=== PATIENT | male | born 1945 | race Caucasian/White ===

== ENCOUNTER 2021-09-13 17:05 | Inpatient (IN) | payer MEDICARE ==
[2021-09-13 17:22] LABS: #Basophils 0.1 thou/uL (0.0-0.2); #Eosinphils 0.1 thou/uL (0.0-0.7); #Lymphocytes 1.5 thou/uL (1.20-3.40); #Monocytes 0.9 thou/uL (0.11-0.59); #Neutrophils 5.6 thou/uL (1.40-6.50); %Basophils 0.7 % (0.0-1.0); %Eosinophils 1.7 % (0.0-10.0); %Lymphocytes 18.3 % (21.0-51.0); %Monocytes 10.8 % (0.0-10.0); %Neutrophils 68.5 % (42.0-75.0); Hemoglobin 13.9 g/dL (14.0-18.0); Mean Corpuscular Hemoglobin 34.3 pg (27.0-31.0); Mean Platelet Volume 6.4 fL (7.4-10.4); Platelet Count 252 thou/uL (130-400); RBC Distribution Width 11.9 % (11.5-14.5); Red Blood Cell (RBC) Count 4.05 mill/uL (4.70-6.10); White Blood Cell (WBC) Count 8.2 thou/uL (4.8-10.8)
[2021-09-13 17:31] LABS: PTT 31.4 sec (22.9-36.1); Prothrombin Time 13.6 sec (12.0-14.7)
[2021-09-13 17:37] LABS: ALT (SGPT) 24 U/L (8-55); AST (SGOT) 55 U/L (5-34); Albumin 4.1 g/dL (3.4-4.8); Alkaline Phosphatase 64 U/L (40-110); Anion Gap 22 mmol/L (10-20); BUN (Urea Nitrogen) 10 mg/dL (8.4-25.7); CK (CPK) 1058 U/L (30-200); Calc. Creatinine Clearance 0 mL/min (70-130); Carbon Dioxide 21 mmol/L (23-31); Chloride 85 mmol/L (98-107); Globulin 2.7 g/dL (2.4-3.5); Glucose 94 mg/dL (83-110); Potassium 3.2 mmol/L (3.5-5.1); Protein, Total 6.8 g/dL (5.8-8.1); Sodium 125 mmol/L (136-145)
[2021-09-13] MEDS ORDERED: Potassium Chloride 20 MEQ TAB ONE (18:55)
[2021-09-13] MEDS ORDERED: Ondansetron PF 4 MG/2 ML Vial IVP PRN (19:25)
[2021-09-13] MEDS ORDERED: Zolpidem Tartrate 5 MG TAB PO PRN (19:25)
[2021-09-13] MEDS ORDERED: HYDROcodone/Acetaminophen 7.5/325 mg Tablet PO PRN (19:25)
[2021-09-13] MEDS ORDERED: Bisacodyl 5 MG TAB PO PRN (19:25)
[2021-09-13] MEDS ORDERED: Lorazepam 2 MG/ML VIAL SLOW IVP PRN (19:30)
[2021-09-13] MEDS ORDERED: Aspirin 81 mg Enteric Coated Tablet PO SCH (19:45)
[2021-09-13 19:57] LABS: Magnesium 1.7 mg/dL (1.6-2.6); Uric Acid 4.9 mg/dL (3.5-7.2)
[2021-09-13] MEDS: NS 0.9% w/ 40 MEQ KCL 1,000 ML IV SCH (20:52)
[2021-09-13] MEDS: Famotidine 20 MG TAB PO SCH (21:14)
[2021-09-13 21:59] VITALS: BMI 29.5
[2021-09-14 04:56] LABS: #Eosinphils 0.1 thou/uL (0.0-0.7); #Lymphocytes 1.1 thou/uL (1.20-3.40); #Neutrophils 6.1 thou/uL (1.40-6.50); %Basophils 0.4 % (0.0-1.0); %Eosinophils 1.6 % (0.0-10.0); %Lymphocytes 12.9 % (21.0-51.0); %Monocytes 11.8 % (0.0-10.0); %Neutrophils 73.3 % (42.0-75.0); Hemoglobin 14.2 g/dL (14.0-18.0); Mean Corpuscular Hemoglobin 35.1 pg (27.0-31.0); Mean Platelet Volume 6.6 fL (7.4-10.4); Platelet Count 247 thou/uL (130-400); Red Blood Cell (RBC) Count 4.05 mill/uL (4.70-6.10); White Blood Cell (WBC) Count 8.4 thou/uL (4.8-10.8)
[2021-09-14 05:16] LABS: Troponin I 0.022 ng/mL (< 0.028)
[2021-09-14 05:18] LABS: ALT (SGPT) 25 U/L (8-55); AST (SGOT) 84 U/L (5-34); Albumin 3.7 g/dL (3.4-4.8); Alkaline Phosphatase 64 U/L (40-110); Anion Gap 12 mmol/L (10-20); BUN (Urea Nitrogen) 7 mg/dL (8.4-25.7); Bilirubin, Total 1.3 mg/dL (0.2-1.2); CK (CPK) 2531 U/L (30-200); Calc. Creatinine Clearance 111 mL/min (70-130); Calcium 8.8 mg/dL (7.8-10.44); Carbon Dioxide 31 mmol/L (23-31); Cardiac Risk 1.9 (Less than 4.5); Chloride 90 mmol/L (98-107); Cholesterol 145 mg/dl (< 200 Desired); Globulin 2.8 g/dL (2.4-3.5); Glucose 95 mg/dL (83-110); HDL Cholesterol 78 mg/dL (>60 Neg Risk); LDL Cholesterol, Calculated 57 mg/dL; Protein, Total 6.5 g/dL (5.8-8.1); Sodium 130 mmol/L (136-145); Triglycerides 52 mg/dL (Less than 150)
[2021-09-14 05:21] LABS: Potassium 2.8 mmol/L (3.5-5.1)
[2021-09-14] MEDS ORDERED: Potassium Chloride 20 MEQ TAB PO SCH (05:45)
[2021-09-14 05:49] LABS: Magnesium 1.6 mg/dL (1.6-2.6)
[2021-09-14] MEDS: NS 0.9% w/ 40 MEQ KCL 1,000 ML IV SCH ×4 (05:55→23:22)
[2021-09-14] MEDS ORDERED: Magnesium Sulfate 4 GM in Sodium Chloride 0.9% 250 ML 250 ML IVPB SCH (07:15)
[2021-09-14] MEDS ORDERED: Magnesium Sulfate In Water 4 GM in Premix Bag 1 BAG IVPB SCH ×2 (08:00→12:00)
[2021-09-14] MEDS: Enoxaparin Sodium 40 MG/0.4 ML SYRINGE SC SCH (08:34)
[2021-09-14] MEDS: Thiamine 100 MG TAB PO SCH (08:34)
[2021-09-14] MEDS: Famotidine 20 MG TAB PO SCH ×2 (08:34→20:38)
[2021-09-14] MEDS: Aspirin 81 mg Enteric Coated Tablet PO SCH (08:34)
[2021-09-14] MEDS: Folic Acid 1 MG TAB PO SCH (08:34)
[2021-09-14] MEDS: Losartan 25 MG TAB PO SCH (08:34)
[2021-09-14] MEDS: Potassium Chloride 20 MEQ TAB PO SCH ×3 (08:42→16:31)
[2021-09-14] MEDS ORDERED: Amlodipine 10 MG TAB PO SCH (10:15)
[2021-09-14] MEDS ORDERED: Metamucil PACK PO SCH (11:30)
[2021-09-14 12:29] LABS: Anion Gap 10 mmol/L (10-20); BUN (Urea Nitrogen) 9 mg/dL (8.4-25.7); Calc. Creatinine Clearance 108 mL/min (70-130); Calcium 8.6 mg/dL (7.8-10.44); Carbon Dioxide 32 mmol/L (23-31); Chloride 91 mmol/L (98-107); Glucose 124 mg/dL (83-110); Potassium 3.3 mmol/L (3.5-5.1); Sodium 130 mmol/L (136-145)
[2021-09-14 18:55] LABS: SARS-CoV-2 PCR by NAA Not Detected (NotDetected)
[2021-09-14] MEDS: Acetaminophen 325 MG TAB PO PRN (23:20)
[2021-09-15 05:36] LABS: #Eosinphils 0.1 thou/uL (0.0-0.7); #Lymphocytes 1.1 thou/uL (1.20-3.40); %Basophils 0.3 % (0.0-1.0); %Eosinophils 1.9 % (0.0-10.0); %Lymphocytes 15.1 % (21.0-51.0); %Monocytes 13.2 % (0.0-10.0); %Neutrophils 69.5 % (42.0-75.0); Mean Corpuscular HGB CONC 34.5 g/dL (32.0-36.0); Mean Corpuscular Hemoglobin 35.2 pg (27.0-31.0); Mean Platelet Volume 6.6 fL (7.4-10.4); Platelet Count 219 thou/uL (130-400); Red Blood Cell (RBC) Count 3.68 mill/uL (4.70-6.10); White Blood Cell (WBC) Count 7.2 thou/uL (4.8-10.8)
[2021-09-15] MEDS: NS 0.9% w/ 40 MEQ KCL 1,000 ML IV SCH ×4 (05:39→17:48)
[2021-09-15 05:58] LABS: ALT (SGPT) 23 U/L (8-55); AST (SGOT) 77 U/L (5-34); Albumin 3.4 g/dL (3.4-4.8); Alkaline Phosphatase 56 U/L (40-110); Bilirubin, Direct 0.7 mg/dL (0.1-0.3); Bilirubin, Total 1.5 mg/dL (0.2-1.2); Protein, Total 5.9 g/dL (5.8-8.1)
[2021-09-15 06:01] LABS: Anion Gap 10 mmol/L (10-20); BUN (Urea Nitrogen) 7 mg/dL (8.4-25.7); CK (CPK) 1920 U/L (30-200); Calc. Creatinine Clearance 109 mL/min (70-130); Calcium 7.6 mg/dL (7.8-10.44); Carbon Dioxide 27 mmol/L (23-31); Chloride 99 mmol/L (98-107); Glucose 102 mg/dL (83-110); Potassium 4.3 mmol/L (3.5-5.1); Sodium 132 mmol/L (136-145)
[2021-09-15] MEDS: Metamucil PACK PO SCH (09:41)
[2021-09-15] MEDS: Losartan 25 MG TAB PO SCH (09:41)
[2021-09-15] MEDS: Famotidine 20 MG TAB PO SCH ×2 (09:41→21:53)
[2021-09-15] MEDS: Aspirin 81 mg Enteric Coated Tablet PO SCH (09:41)
[2021-09-15] MEDS: Thiamine 100 MG TAB PO SCH (09:41)
[2021-09-15] MEDS: Folic Acid 1 MG TAB PO SCH (09:41)
[2021-09-15] MEDS: Enoxaparin Sodium 40 MG/0.4 ML SYRINGE SC SCH (09:41)
[2021-09-15] MEDS: Amlodipine 10 MG TAB PO SCH (09:42)
[2021-09-15] MEDS: Acetaminophen 325 MG TAB PO PRN (18:47)
[2021-09-15 20:48] LABS: Anion Gap 13 mmol/L (10-20); BUN (Urea Nitrogen) 6 mg/dL (8.4-25.7); CK (CPK) 1946 U/L (30-200); Calc. Creatinine Clearance 117 mL/min (70-130); Calcium 7.9 mg/dL (7.8-10.44); Carbon Dioxide 23 mmol/L (23-31); Chloride 100 mmol/L (98-107); Glucose 117 mg/dL (83-110); Sodium 132 mmol/L (136-145)
[2021-09-15] MEDS: Sodium Chloride 0.9% 1,000 ML IV SCH (21:53)
[2021-09-16] MEDS: Sodium Chloride 0.9% 1,000 ML IV SCH ×7 (01:17→21:44)
[2021-09-16 05:45] LABS: ALT (SGPT) 26 U/L (8-55); AST (SGOT) 73 U/L (5-34); Albumin 3.7 g/dL (3.4-4.8); Alkaline Phosphatase 59 U/L (40-110); Anion Gap 13 mmol/L (10-20); BUN (Urea Nitrogen) 5 mg/dL (8.4-25.7); Bilirubin, Total 1.5 mg/dL (0.2-1.2); CK (CPK) 1603 U/L (30-200); Calc. Creatinine Clearance 124 mL/min (70-130); Calcium 7.8 mg/dL (7.8-10.44); Carbon Dioxide 23 mmol/L (23-31); Chloride 100 mmol/L (98-107); Globulin 2.7 g/dL (2.4-3.5); Glucose 103 mg/dL (83-110); Magnesium 1.6 mg/dL (1.6-2.6); Potassium 3.5 mmol/L (3.5-5.1); Protein, Total 6.4 g/dL (5.8-8.1); Sodium 132 mmol/L (136-145)
[2021-09-16 05:47] LABS: Phosphorus 1.7 mg/dL (2.3-4.7)
[2021-09-16] MEDS ORDERED: Electrolyte Replacement Protocol 1 EACH FS PRN (06:04)
[2021-09-16] MEDS ORDERED: Potassium Phosphate 15 MMOL in Sodium Chloride 0.9% 100 ML IVPB SCH ×2 (06:15→15:15)
[2021-09-16] MEDS ORDERED: Magnesium 2 GM/50 ML(in water) 2 GM in Premix Bag 1 BAG IVPB SCH (06:15)
[2021-09-16] MEDS: Enoxaparin Sodium 40 MG/0.4 ML SYRINGE SC SCH (08:49)
[2021-09-16] MEDS: Famotidine 20 MG TAB PO SCH ×2 (08:49→20:43)
[2021-09-16] MEDS: Amlodipine 10 MG TAB PO SCH (08:50)
[2021-09-16] MEDS: Thiamine 100 MG TAB PO SCH (08:50)
[2021-09-16] MEDS: Losartan 25 MG TAB PO SCH (08:50)
[2021-09-16] MEDS: Aspirin 81 mg Enteric Coated Tablet PO SCH (08:50)
[2021-09-16] MEDS: Cyanocobalamin (Vitamin B-12) 1,000 MCG TAB PO SCH (08:50)
[2021-09-16] MEDS: Folic Acid 1 MG TAB PO SCH (08:50)
[2021-09-16] MEDS: Metamucil PACK PO SCH (08:51)
[2021-09-16] MEDS ORDERED: Potassium Chloride 20 MEQ TAB PO SCH ×2 (11:00→20:00)
[2021-09-16 14:40] LABS: Anion Gap 12 mmol/L (10-20); BUN (Urea Nitrogen) 5 mg/dL (8.4-25.7); CK (CPK) 1329 U/L (30-200); Calc. Creatinine Clearance 117 mL/min (70-130); Calcium 7.8 mg/dL (7.8-10.44); Carbon Dioxide 25 mmol/L (23-31); Chloride 99 mmol/L (98-107); Glucose 107 mg/dL (83-110); Phosphorus 2.2 mg/dL (2.3-4.7); Potassium 3.6 mmol/L (3.5-5.1); Sodium 132 mmol/L (136-145)
[2021-09-16] MEDS ORDERED: Potassium Phosphate 15 MMOL in Sodium Chloride 0.9% 250 ML 250 ML IVPB SCH (15:15)
[2021-09-16] MEDS: Acetaminophen 325 MG TAB PO PRN (22:57)
[2021-09-17 05:17] LABS: Phosphorus 2.4 mg/dL (2.3-4.7)
[2021-09-17 05:21] LABS: ALT (SGPT) 25 U/L (8-55); AST (SGOT) 61 U/L (5-34); Albumin 3.9 g/dL (3.4-4.8); Alkaline Phosphatase 55 U/L (40-110); Anion Gap 13 mmol/L (10-20); BUN (Urea Nitrogen) 5 mg/dL (8.4-25.7); Bilirubin, Total 1.6 mg/dL (0.2-1.2); Calc. Creatinine Clearance 119 mL/min (70-130); Calcium 8.4 mg/dL (7.8-10.44); Carbon Dioxide 25 mmol/L (23-31); Chloride 99 mmol/L (98-107); Glucose 101 mg/dL (83-110); Magnesium 1.7 mg/dL (1.6-2.6); Potassium 3.7 mmol/L (3.5-5.1); Protein, Total 6.9 g/dL (5.8-8.1); Sodium 133 mmol/L (136-145)
[2021-09-17] MEDS ORDERED: Potassium Chloride 20 MEQ TAB PO SCH (08:00)
[2021-09-17] MEDS: Aspirin 81 mg Enteric Coated Tablet PO SCH (08:44)
[2021-09-17] MEDS: Thiamine 100 MG TAB PO SCH (08:45)
[2021-09-17] MEDS: Cyanocobalamin (Vitamin B-12) 1,000 MCG TAB PO SCH (08:45)
[2021-09-17] MEDS: Folic Acid 1 MG TAB PO SCH (08:45)
[2021-09-17] MEDS: Famotidine 20 MG TAB PO SCH (08:45)
[2021-09-17] MEDS: Losartan 25 MG TAB PO SCH (08:46)
[2021-09-17] MEDS: Amlodipine 10 MG TAB PO SCH (08:46)
[2021-09-17] MEDS: Metamucil PACK PO SCH (08:47)
[2021-09-17] MEDS: Enoxaparin Sodium 40 MG/0.4 ML SYRINGE SC SCH (08:47)
[2021-09-17] MEDS ORDERED: Magnesium 2 GM/50 ML(in water) 2 GM in Premix Bag 1 BAG IVPB SCH (09:00)
[2021-09-17] MEDS ORDERED: Losartan 25 MG TAB PO SCH (09:00)
[2021-09-17 12:26] VITALS: BP 138/82; TEMP 97.2
== END 2021-09-17 13:18 | disposition home or self-care (01) | DRG 640 ==
LOC: ERS 17:05 → NEURO 19:25 → OBSVTOIN 09-14 11:24
PROVIDERS: ADMIT Internal Medicine; ATTEND Internal Medicine
DX: E87.1 Hypo-osmolality and hyponatremia (principal); G93.41 Metabolic encephalopathy; M62.82 Rhabdomyolysis; G45.9 Transient cerebral ischemic attack, unspecified; Z20.822 Contact with and (suspected) exposure to COVID-19; I10 Essential (primary) hypertension; E78.5 Hyperlipidemia, unspecified; E87.6 Hypokalemia; E83.42 Hypomagnesemia; E86.9 Volume depletion, unspecified; F10.20 Alcohol dependence, uncomplicated; E83.39 Other disorders of phosphorus metabolism; K59.00 Constipation, unspecified; Z79.899 Other long term (current) drug therapy
CPT/HCPCS: 36415; 70450; 70551; 71045; 80048; 80053; 80061; 80076; 82550; 83735; 83930; 83935; 84100; 84133; 84300; 84443; 84484; 84550; 85025; 85610; 85730; 93005; 93306; 94760; 96372; 96374; G0378; J1650; J3475; J3480; J3490; J7050; U0003; U0005

== ENCOUNTER 2023-03-04 05:54 | Day surgery (SDC) | payer MEDICARE ==
[2023-03-03 14:24] VITALS: BMI 28.7
[2023-03-04] MEDS ORDERED: EPINEPHrine 0.3 MG in Ophthalmic Irrigation Solution 500 ML IRR SCH (06:00)
[2023-03-04] MEDS ORDERED: Cyclopentolate W/ Phenylephrin 5 ML BOT ONE (06:11)
[2023-03-04] MEDS ORDERED: fentaNYL 50 mcg/mL 1 mL Vial ONE (06:55)
[2023-03-04] MEDS ORDERED: Midazolam HCl 2 mg/2 ml Vial ONE (06:55)
[2023-03-04] MEDS ORDERED: Maxitrol 0.1% Opth Oint 3.5 GM TUBE ONE (07:58)
[2023-03-04] MEDS ORDERED: Lidocaine 1% PF 5 ML VIAL ONE (07:58)
[2023-03-04] MEDS ORDERED: Triamcinolone 40 MG/ML VIAL ONE (07:58)
[2023-03-04] MEDS ORDERED: Indocyanine Green 25 MG/10 ML VIAL ONE (07:58)
[2023-03-04] MEDS ORDERED: Bupivacaine 0.75% 10 ML VIAL ONE (07:58)
[2023-03-04] MEDS ORDERED: PROPOFOL 200 MG/20 ML VIAL ONE (07:58)
[2023-03-04] MEDS ORDERED: Lidocaine 4% PF 5 ML AMP ONE (07:58)
[2023-03-04] MEDS ORDERED: CEFAZOLIN 1 GM VIAL ONE (07:58)
== END 2023-03-04 09:20 | disposition home or self-care (01) ==
LOC: SDC 05:54
PROVIDERS: ATTEND Ophthalmology Retina Specialist
PROC: 08T53ZZ Resection of Left Vitreous, Percutaneous Approach (ICD-10-PCS; principal; 2023-03-04)
PROC: 08NF3ZZ Release Left Retina, Percutaneous Approach (ICD-10-PCS; 2023-03-04)
DX: H35.342 Macular cyst, hole, or pseudohole, left eye (principal)
CPT/HCPCS: 67025; 67042; J3010; J0171; J0690; J2250; J2704; J3301; J3490

== ENCOUNTER 2024-05-23 11:54 | Inpatient (IN) | payer MEDICARE ==
[2024-05-23 13:59] LABS: #Basophils Less than 0.03 10x3/uL (0.0-0.2); #Eosinophils Less than 0.03 10x3/uL (0.0-0.7); %Basophils 0.1 % (0.0-1.0); %Lymphocytes 5.5 % (21.0-51.0); %Monocytes 4.5 % (0.0-10.0); %Neutrophils 88.7 % (42.0-75.0); Hematocrit 11.9 % (42.0-52.0); Mean Corpuscular HGB CONC 33.6 g/dL (32.0-36.0); Mean Corpuscular Hemoglobin 34.8 pg (27.0-31.0); Mean Corpuscular Volume 103.5 fL (78.0-98.0); Mean Platelet Volume 9.4 fL (7.4-10.4); Platelet Count 181 10x3/uL (130-400); RBC Distribution Width 15.5 % (11.5-14.5); Red Blood Cell (RBC) Count 1.15 mill/uL (4.70-6.10)
[2024-05-23 14:09] LABS: ALT (SGPT) 19 U/L (8-55); AST (SGOT) 31 U/L (5-34); Albumin 2.7 g/dL (3.4-4.8); Alkaline Phosphatase 31 U/L (40-110); Anion Gap 12 mmol/L (10-20); BUN (Urea Nitrogen) 48 mg/dL (8.4-25.7); Bilirubin, Total 0.3 mg/dL (0.2-1.2); Calc. Creatinine Clearance 0 mL/min (70-130); Calcium 7.8 mg/dL (7.8-10.44); Carbon Dioxide 26 mmol/L (23-31); Chloride 107 mmol/L (98-107); Estimated GFR 69; Globulin 1.9 g/dL (2.4-3.5); Glucose 158 mg/dL (83-110); Potassium 3.8 mmol/L (3.5-5.1); Protein, Total 4.6 g/dL (5.8-8.1); Sodium 141 mmol/L (136-145)
[2024-05-23] MEDS ORDERED: Acetaminophen 650 MG Suppository PR PRN (16:15)
[2024-05-23] MEDS ORDERED: Ondansetron PF 4 MG/2 ML Vial IVP PRN (16:15)
[2024-05-23] MEDS ORDERED: Ondansetron ODT 4 MG TAB PO PRN (16:15)
[2024-05-23] MEDS ORDERED: Acetaminophen 325 MG TAB PO PRN (16:15)
[2024-05-23] MEDS ORDERED: Lorazepam 0.5 MG TAB PO PRN (16:32)
[2024-05-23] MEDS ORDERED: Electrolyte Replacement Protocol 1 EACH FS SCH (16:45)
[2024-05-23] MEDS: Thiamine HCl 200 MG/2 ML VIAL SLOW IVP SCH (17:44)
[2024-05-23] MEDS: Pantoprazole 40 MG VIAL IVP SCH (17:44)
[2024-05-23 19:15] VITALS: BMI 27.5
[2024-05-23 19:32] LABS: INR-International Normal Ratio 1.2; Prothrombin Time 15.3 sec (12.0-14.7)
[2024-05-23 19:42] LABS: Troponin I 0.019 ng/mL (< 0.028)
[2024-05-23 19:43] LABS: ALT (SGPT) 19 U/L (8-55); AST (SGOT) 30 U/L (5-34); Albumin 2.7 g/dL (3.4-4.8); Alkaline Phosphatase 31 U/L (40-110); Anion Gap 12 mmol/L (10-20); BUN (Urea Nitrogen) 47 mg/dL (8.4-25.7); Bilirubin, Total 0.3 mg/dL (0.2-1.2); Calc. Creatinine Clearance 66 mL/min (70-130); Calcium 7.9 mg/dL (7.8-10.44); Carbon Dioxide 24 mmol/L (23-31); Chloride 108 mmol/L (98-107); Estimated GFR 68; Glucose 179 mg/dL (83-110); Iron Binding Capacity, Total 231 mcg/dL (261-462); Magnesium 1.9 mg/dL (1.6-2.6); Potassium 3.7 mmol/L (3.5-5.1); Protein, Total 4.7 g/dL (5.8-8.1); Sodium 140 mmol/L (136-145)
[2024-05-23] MEDS: Multivit, Therapeutic 1 TAB PO SCH (20:47)
[2024-05-23] MEDS: Folic Acid 1 MG TAB PO SCH (20:47)
[2024-05-23] MEDS: Magnesium 2 GM/50 ML(in water) 2 GM in Premix 1 BAG IVPB SCH (21:24)
[2024-05-23 22:37] LABS: Hematocrit 15.3 % (42.0-52.0); Hemoglobin 5.2 g/dL (14.0-18.0)
[2024-05-23 23:19] LABS: Troponin I Less than 0.010 ng/mL (< 0.028)
[2024-05-23] MEDS ORDERED: Furosemide 20 MG (2 mL) VIAL IVP SCH (23:30)
[2024-05-24 04:57] LABS: #Basophils 0.04 10x3/uL (0.0-0.2); #Eosinophils Less than 0.03 10x3/uL (0.0-0.7); %Basophils 0.3 % (0.0-1.0); %Eosinophils 0.1 % (0.0-10.0); %Lymphocytes 12.1 % (21.0-51.0); %Monocytes 9.2 % (0.0-10.0); %Neutrophils 76.4 % (42.0-75.0); Hematocrit 17.3 % (42.0-52.0); Hemoglobin 5.8 g/dL (14.0-18.0); Mean Corpuscular HGB CONC 33.5 g/dL (32.0-36.0); Mean Corpuscular Hemoglobin 31.5 pg (27.0-31.0); Mean Platelet Volume 9.6 fL (7.4-10.4); Platelet Count 168 10x3/uL (130-400); RBC Distribution Width 19.6 % (11.5-14.5); Red Blood Cell (RBC) Count 1.84 mill/uL (4.70-6.10)
[2024-05-24 05:52] LABS: ALT (SGPT) 17 U/L (8-55); AST (SGOT) 30 U/L (5-34); Albumin 2.7 g/dL (3.4-4.8); Alkaline Phosphatase 32 U/L (40-110); Anion Gap 11 mmol/L (10-20); BUN (Urea Nitrogen) 42 mg/dL (8.4-25.7); Bilirubin, Total 0.4 mg/dL (0.2-1.2); Calc. Creatinine Clearance 68 mL/min (70-130); Calcium 7.8 mg/dL (7.8-10.44); Carbon Dioxide 25 mmol/L (23-31); Chloride 107 mmol/L (98-107); Estimated GFR 70; Glucose 114 mg/dL (83-110); Potassium 3.6 mmol/L (3.5-5.1); Protein, Total 4.7 g/dL (5.8-8.1); Sodium 139 mmol/L (136-145)
[2024-05-24 07:44] LABS: Hematocrit 21.1 % (42.0-52.0); Hemoglobin 7.1 g/dL (14.0-18.0)
[2024-05-24 08:24] LABS: Hematocrit 19.8 % (42.0-52.0); Hemoglobin 6.8 g/dL (14.0-18.0); Platelet Count 155 10x3/uL (130-400)
[2024-05-24] MEDS: Pantoprazole 40 MG VIAL IVP SCH (10:21)
[2024-05-24] MEDS: Aspirin Chewable 81 MG TAB PO SCH (16:23)
[2024-05-24] MEDS: Atorvastatin Calcium 10 MG TAB PO SCH (21:10)
[2024-05-24 22:44] LABS: Hematocrit 21.9 % (42.0-52.0); Hemoglobin 7.4 g/dL (14.0-18.0)
[2024-05-25 08:23] LABS: #Basophils 0.06 10x3/uL (0.0-0.2); %Basophils 0.5 % (0.0-1.0); %Eosinophils 0.8 % (0.0-10.0); %Lymphocytes 13.4 % (21.0-51.0); %Monocytes 7.8 % (0.0-10.0); %Neutrophils 75.2 % (42.0-75.0); Hematocrit 23.5 % (42.0-52.0); Hemoglobin 7.8 g/dL (14.0-18.0); Mean Corpuscular HGB CONC 33.2 g/dL (32.0-36.0); Mean Corpuscular Hemoglobin 31.2 pg (27.0-31.0); Mean Platelet Volume 9.5 fL (7.4-10.4); Platelet Count 153 10x3/uL (130-400); RBC Distribution Width 21.5 % (11.5-14.5)
[2024-05-25] MEDS: Amlodipine 5 MG TAB PO SCH (10:16)
[2024-05-25] MEDS: Cholecalciferol 1,000 UNITS (25 MCG) TAB PO SCH (10:16)
[2024-05-25] MEDS: Losartan 25 MG TAB PO SCH (10:16)
[2024-05-26 04:29] LABS: #Basophils 0.05 10x3/uL (0.0-0.2); %Basophils 0.5 % (0.0-1.0); %Eosinophils 1.3 % (0.0-10.0); %Monocytes 10.4 % (0.0-10.0); %Neutrophils 69.6 % (42.0-75.0); Hematocrit 22.9 % (42.0-52.0); Hemoglobin 7.6 g/dL (14.0-18.0); Mean Corpuscular HGB CONC 33.2 g/dL (32.0-36.0); Mean Corpuscular Hemoglobin 31.4 pg (27.0-31.0); Mean Corpuscular Volume 94.6 fL (78.0-98.0); Mean Platelet Volume 9.3 fL (7.4-10.4); Platelet Count 174 10x3/uL (130-400); RBC Distribution Width 21.5 % (11.5-14.5); Red Blood Cell (RBC) Count 2.42 mill/uL (4.70-6.10)
[2024-05-26] MEDS ORDERED: Aspirin Chewable 81 MG TAB PO SCH (09:00)
[2024-05-26] MEDS: Thiamine 100 MG TAB PO SCH (10:27)
[2024-05-26 16:38] VITALS: BP 136/68; TEMP 98.6
[2024-05-28 08:38] LABS: Methylmalonic Acid 222 nmol/L (0-378)
== END 2024-05-26 18:45 | disposition home or self-care (01) | DRG 812 ==
LOC: ERS 11:54 → 2NO 15:09
PROVIDERS: ADMIT Family Medicine; ATTEND Internal Medicine
DX: D64.9 Anemia, unspecified (principal); N17.9 Acute kidney failure, unspecified; I10 Essential (primary) hypertension; E78.5 Hyperlipidemia, unspecified; F10.90 Alcohol use, unspecified, uncomplicated; Z98.890 Other specified postprocedural states; Z79.899 Other long term (current) drug therapy; Z79.82 Long term (current) use of aspirin; Z82.3 Family history of stroke
CPT/HCPCS: 36415; 36430; 71045; 80053; 82607; 82728; 83010; 83540; 83550; 83615; 83735; 83921; 84100; 84484; 85025; 85046; 85610; 86850; 86900; 86901; 93005; 93306; J2470; J3411; J3475; P9016

== ENCOUNTER 2024-06-20 17:41 | Inpatient (IN) | payer MEDICARE ==
[~2024-06-20 17:41] MED LIST: Iopamidol-370 76% 500 ML MDV (1 ML CHARGE) ONE
[2024-06-20 18:21] LABS: #Basophils 0.03 10x3/uL (0.0-0.2); #Eosinophils Less than 0.03 10x3/uL (0.0-0.7); %Basophils 0.3 % (0.0-1.0); %Eosinophils 0.2 % (0.0-10.0); %Monocytes 6.6 % (0.0-10.0); %Neutrophils 80.2 % (42.0-75.0); Hematocrit 20.4 % (42.0-52.0); Hemoglobin 6.6 g/dL (14.0-18.0); Mean Corpuscular HGB CONC 32.4 g/dL (32.0-36.0); Mean Corpuscular Hemoglobin 32.7 pg (27.0-31.0); Platelet Count 257 10x3/uL (130-400); RBC Distribution Width 19.7 % (11.5-14.5); Red Blood Cell (RBC) Count 2.02 mill/uL (4.70-6.10)
[2024-06-20 18:34] LABS: ALT (SGPT) 11 U/L (Less than 45); AST (SGOT) 21 U/L (11-34); Albumin 3.1 g/dL (3.1-4.5); Alkaline Phosphatase 51 U/L (40-110); Anion Gap 13 mmol/L (10-20); BUN (Urea Nitrogen) 26 mg/dL (8.4-25.7); Bilirubin, Total 0.2 mg/dL (0.3-1.2); Calc. Creatinine Clearance 0 mL/min (70-130); Calcium 8.7 mg/dL (7.8-10.44); Carbon Dioxide 25 mmol/L (23-31); Chloride 100 mmol/L (98-107); Estimated GFR 88; Globulin 2.5 g/dL (2.4-3.5); Glucose 157 mg/dL (83-110); Potassium 3.6 mmol/L (3.5-5.1); Protein, Total 5.6 g/dL (5.8-8.1); Sodium 134 mmol/L (136-145)
[2024-06-20 18:35] LABS: INR-International Normal Ratio 1.1; Prothrombin Time 14.3 sec (12.0-14.7)
[2024-06-20] MEDS ORDERED: Pantoprazole 40 MG VIAL ONE (19:49)
[2024-06-20] MEDS ORDERED: Acetaminophen 650 MG Suppository PR PRN (20:53)
[2024-06-20] MEDS ORDERED: Calcium Carbonate 500 MG ChewTAB PO PRN (20:53)
[2024-06-20] MEDS ORDERED: Acetaminophen 325 MG TAB PO PRN (20:53)
[2024-06-20] MEDS ORDERED: Ondansetron PF 4 MG/2 ML Vial IVP PRN (20:53)
[2024-06-20] MEDS: GoLYTELY 4,000 ml Bottle PO SCH (22:53)
[2024-06-21 06:49] LABS: #Basophils 0.04 10x3/uL (0.0-0.2); %Basophils 0.4 % (0.0-1.0); %Lymphocytes 16.5 % (21.0-51.0); %Monocytes 9.2 % (0.0-10.0); %Neutrophils 72.3 % (42.0-75.0); Hematocrit 20.4 % (42.0-52.0); Hemoglobin 6.5 g/dL (14.0-18.0); Mean Corpuscular HGB CONC 31.9 g/dL (32.0-36.0); Mean Corpuscular Hemoglobin 31.3 pg (27.0-31.0); Mean Corpuscular Volume 98.1 fL (78.0-98.0); Mean Platelet Volume 9.5 fL (7.4-10.4); Platelet Count 225 10x3/uL (130-400); Red Blood Cell (RBC) Count 2.08 mill/uL (4.70-6.10)
[2024-06-21 07:06] LABS: ALT (SGPT) 10 U/L (Less than 45); AST (SGOT) 19 U/L (11-34); Albumin 2.6 g/dL (3.1-4.5); Alkaline Phosphatase 39 U/L (40-110); Anion Gap 13 mmol/L (10-20); BUN (Urea Nitrogen) 24 mg/dL (8.4-25.7); Bilirubin, Total 0.3 mg/dL (0.3-1.2); Calc. Creatinine Clearance 0 mL/min (70-130); Carbon Dioxide 28 mmol/L (23-31); Chloride 103 mmol/L (98-107); Estimated GFR 88; Globulin 2.1 g/dL (2.4-3.5); Glucose 103 mg/dL (83-110); Potassium 3.3 mmol/L (3.5-5.1); Protein, Total 4.7 g/dL (5.8-8.1); Sodium 141 mmol/L (136-145)
[2024-06-21] MEDS ORDERED: PROPOFOL 20 ML ONE (07:16)
[2024-06-21] MEDS ORDERED: Lidocaine 2% PF 5 ML VIAL ONE (07:16)
[2024-06-21] MEDS ORDERED: Electrolyte Replacement Protocol 1 EACH FS PRN (08:00)
[2024-06-21] MEDS ORDERED: Pantoprazole 40 MG VIAL ONE (08:39)
[2024-06-21] MEDS ORDERED: Electrolyte Replacement Protocol FS PRN (08:45)
[2024-06-21] MEDS ORDERED: EPINEPHrine 1 MG/ML VIAL ONE (09:22)
[2024-06-21] MEDS ORDERED: PROPOFOL 40 ML ONE (09:22)
[2024-06-21] MEDS ORDERED: EPINEPHrine 1 MG/10 ML Abboject SYRINGE ONE (09:22)
[2024-06-21] MEDS: Pantoprazole 40 MG VIAL IVP SCH ×2 (11:13→11:21)
[2024-06-21] MEDS: Potassium Bicarbonate/Cit Ac 20 MEQ TAB PO SCH (11:27)
[2024-06-21] MEDS: Amlodipine 10 MG TAB PO SCH (11:27)
[2024-06-21] MEDS: Sodium Chloride 0.9% 1,000 ML IV SCH (11:27)
[2024-06-21 13:43] LABS: Hematocrit 27.3 % (42.0-52.0); Hemoglobin 8.7 g/dL (14.0-18.0)
[2024-06-21 15:05] LABS: Potassium 3.6 mmol/L (3.5-5.1)
[2024-06-21] MEDS: Folic Acid 1 MG TAB PO SCH (20:51)
[2024-06-21] MEDS: Atorvastatin Calcium 10 MG TAB PO SCH (20:51)
[2024-06-21 21:32] LABS: Hematocrit 25.5 % (42.0-52.0); Hemoglobin 8.4 g/dL (14.0-18.0)
[2024-06-22 04:42] LABS: #Basophils 0.04 10x3/uL (0.0-0.2); %Basophils 0.6 % (0.0-1.0); %Eosinophils 3.2 % (0.0-10.0); %Lymphocytes 18.7 % (21.0-51.0); %Monocytes 9.8 % (0.0-10.0); %Neutrophils 67.1 % (42.0-75.0); Hematocrit 25.4 % (42.0-52.0); Mean Corpuscular HGB CONC 31.5 g/dL (32.0-36.0); Mean Corpuscular Hemoglobin 30.2 pg (27.0-31.0); Mean Corpuscular Volume 95.8 fL (78.0-98.0); Mean Platelet Volume 9.1 fL (7.4-10.4); Platelet Count 219 10x3/uL (130-400); RBC Distribution Width 23.8 % (11.5-14.5); Red Blood Cell (RBC) Count 2.65 mill/uL (4.70-6.10)
[2024-06-22 05:10] LABS: Anion Gap 10 mmol/L (10-20); BUN (Urea Nitrogen) 8 mg/dL (8.4-25.7); Calc. Creatinine Clearance 0 mL/min (70-130); Calcium 7.8 mg/dL (7.8-10.44); Carbon Dioxide 26 mmol/L (23-31); Chloride 108 mmol/L (98-107); Estimated GFR 93; Glucose 94 mg/dL (83-110); Magnesium 1.6 mg/dL (1.6-2.6); Potassium 3.6 mmol/L (3.5-5.1); Sodium 140 mmol/L (136-145)
[2024-06-22] MEDS: Magnesium 2 GM/50 ML(in water) 2 GM in Premix 1 BAG IVPB SCH (06:15)
[2024-06-22] MEDS: Ferrous Sulfate 325 MG TAB PO SCH (09:05)
[2024-06-23] MEDS: Ondansetron ODT 4 MG TAB PO PRN (00:42)
[2024-06-23 05:56] LABS: #Basophils 0.03 10x3/uL (0.0-0.2); %Basophils 0.4 % (0.0-1.0); %Eosinophils 3.6 % (0.0-10.0); %Lymphocytes 12.9 % (21.0-51.0); %Monocytes 11.7 % (0.0-10.0); Hematocrit 25.6 % (42.0-52.0); Hemoglobin 8.1 g/dL (14.0-18.0); Mean Corpuscular HGB CONC 31.6 g/dL (32.0-36.0); Mean Corpuscular Volume 98.1 fL (78.0-98.0); Platelet Count 228 10x3/uL (130-400); RBC Distribution Width 22.7 % (11.5-14.5); Red Blood Cell (RBC) Count 2.61 mill/uL (4.70-6.10)
[2024-06-23 06:26] LABS: Anion Gap 9 mmol/L (10-20); BUN (Urea Nitrogen) 5 mg/dL (8.4-25.7); Calc. Creatinine Clearance 90 mL/min (70-130); Calcium 7.9 mg/dL (7.8-10.44); Carbon Dioxide 25 mmol/L (23-31); Chloride 107 mmol/L (98-107); Estimated GFR 90; Glucose 97 mg/dL (83-110); Potassium 3.3 mmol/L (3.5-5.1); Sodium 138 mmol/L (136-145)
[2024-06-23] MEDS: Potassium Chloride 20 MEQ TAB PO SCH (09:08)
[2024-06-23 11:40] VITALS: BP 138/66; TEMP 98.4
== END 2024-06-23 15:11 | disposition home or self-care (01) | DRG 378 ==
LOC: ERS 17:41 → SURG A 20:54 → IMCU/EMU 06-21 10:31 → T4-B 06-22 14:57
PROVIDERS: ADMIT Student in an Organized Health Care Education/Training Program; ATTEND Internal Medicine
PROC: 0W3P8ZZ Control Bleeding in Gastrointestinal Tract, Via Natural or Artificial Opening Endoscopic (ICD-10-PCS; principal; 2024-06-21)
PROC: 0DB78ZX Excision of Stomach, Pylorus, Via Natural or Artificial Opening Endoscopic, Diagnostic (ICD-10-PCS; 2024-06-21)
PROC: 30233N1 Transfusion of Nonautologous Red Blood Cells into Peripheral Vein, Percutaneous Approach (ICD-10-PCS; 2024-06-21)
PROC: 3E033XZ Introduction of Vasopressor into Peripheral Vein, Percutaneous Approach (ICD-10-PCS; 2024-06-21)
DX: K26.4 Chronic or unspecified duodenal ulcer with hemorrhage (principal); D62 Acute posthemorrhagic anemia; E22.2 Syndrome of inappropriate secretion of antidiuretic hormone; I50.32 Chronic diastolic (congestive) heart failure; K25.4 Chronic or unspecified gastric ulcer with hemorrhage; I11.0 Hypertensive heart disease with heart failure; E78.5 Hyperlipidemia, unspecified; E87.6 Hypokalemia; E83.42 Hypomagnesemia; K59.00 Constipation, unspecified; Z98.890 Other specified postprocedural states
CPT/HCPCS: 36415; 36430; 74177; 80048; 80053; 82274; 83735; 85025; 85610; 86850; 86900; 86901; 88305; 88342; 93005; 94760; 96374; J0171; J2470; J2704; J3475; J7030; P9016; Q0162; Q9967